=== PATIENT | male | born 1985 | race American Indian/Alaskan Native ===

== ENCOUNTER 2016-11-05 20:12 | Emergency (ER) | payer MEDICARE ==
[2016-11-05 21:28] LABS: Anion Gap 17 mmol/L; Basophils % (Auto) 0.3 % (0.0-1.8); Blood Urea Nitrogen 15 mg/dL (9-20); Calcium 9.6 mg/dL (8.4-10.2); Carbon Dioxide 25 mmol/L (22-30); Chloride 99.5 mmol/L (98-107); Eosinophils % (Auto) 0.5 % (0.0-4.3); Glucose 92 mg/dL (75-100); Hematocrit 43.2 % (35.5-45.6); Mean Corpuscular HGB Conc 35 % (32-34); Mean Corpuscular Hemoglobin 31 pg (28-32); Mean Corpuscular Volume 88 fl (84-94); Platelet Count 279 K/mm3 (140-440); Potassium 3.8 mmol/L (3.6-5.0); Red Blood Count 4.91 M/mm3 (3.65-5.03); Red Cell Distribution Width 13.9 % (13.2-15.2); Sodium 138 mmol/L (137-145); White Blood Count 8.7 K/mm3 (4.5-11.0)
--- NOTE | 2016-11-05 21:43 | Emergency Department Report ---
ED Psych HPI - General Chief Complaint: Psych Stated Complaint: MENTAL EVALUATION/SUCIDIAL IDEATIONS Time Seen by Provider: 11/05/16 21:31 Source: patient Mode of arrival: Ambulatory Limitations: Altered Mental Status - History of Present Illness Initial Comments: 31-year-old male with a past medical history PTSD, bipolar, and schizophrenia presents to the hospital complaints of suicidal ideation 3 days. Patient threatening to shoot himself. He also feels like killing 40 people. He is hearing voices telling him to kill and destroyed. Patient is taking his Seroquel and Benadryl. Triage reports patient is hyperverbal but not currently hyperverbal during my evaluation. Patient complains of generalized body pain. History of suicide attempt by cutting his neck in 2000. Patient last visit here was November 2015 when he was transferred to psychiatric hospital for suicidal ideation. - Related Data Home Medications Medication Instructions Recorded Confirmed Last Taken No Known Home Medications [No 12/10/15 12/10/15 Unknown Reported Home Medications] Allergies Allergy/AdvReac Type Severity Reaction Status Date / Time haloperidol [From Haldol] Allergy Unknown Verified 12/10/15 07:58 haloperidol lactate Allergy Unknown Verified 12/10/15 07:58 [From Haldol] risperidone [From Risperdal] Allergy Anaphylaxis Verified 12/10/15 03:47 ziprasidone HCl [From Geodon] Allergy Unknown Verified 12/10/15 15:19 ziprasidone mesylate Allergy Unknown Verified 12/10/15 15:19 [From Geodon] ED Review of Systems ROS: Stated complaint: MENTAL EVALUATION/SUCIDIAL IDEATIONS Other details as noted in HPI Comment: All other systems reviewed and negative Other: Constitutional: No fevers chills Eyes: No eye pain visual changes ENT: No ear pain or throat pain Neck: Denies pain Respiratory: Denies cough wheezing shortness of breath Cardiovascular: Denies chest pain, palpitations, syncope GI: Denies abdominal pain, nausea, vomiting, diarrhea : Denies dysuria Musculoskeletal: Generalized body pain Skin: Denies rash, lesions, erythema Neurologic: Denies headache, numbness, weakness Psychiatric: As per HPI ED Past Medical Hx - Past Medical History Previous Medical History?: Yes Hx Psychiatric Treatment: Yes (Paranoid Schizophrenia, Bipolar, PTSD) - Surgical History Past Surgical History?: No - Social History Smoking Status: Never Smoker Substance Use Type: Alcohol, Marijuana - Medications Home Medications: Home Medications Medication Instructions Recorded Confirmed Last Taken Type No Known Home Medications [No 12/10/15 12/10/15 Unknown History Reported Home Medications] ED Physical Exam - General Limitations: No Limitations - Other Other exam information: General: No limitations, patient is alert in no acute distress Head exam: Atraumatic, normocephalic Eyes exam: Normal appearance, pupils equal reactive to light ENT: Moist mucous membrane, normal oropharynx Neck exam: Normal inspection, full range of motion, no meningismus nontender Respiratory exam: Clear to auscultation bilateral, no wheezes, rales, crackles Cardiovascular: Normal rate and rhythm, normal heart sounds Abdomen: Soft, nondistended, and nontender, with normal bowel sounds, no rebound, or guarding Extremity: Full range of motion normal inspection no deformity Back: Normal Inspection, full range of motion, no tenderness Neurologic: Alert, oriented x3, cranial nerves intact, no motor or sensory deficit Psychiatric: Flat affect, angry Skin: Warm, dry, intact ED Course Vital Signs 11/05/16 20:21 Temperature 98.7 F Pulse Rate 100 H Respiratory 18 Rate Blood Pressure 138/88 O2 Sat by Pulse 99 Oximetry - Consultations Consultation #1: 11/05/16 21:42 Mental health evaluation requested ED Medical Decision Making - Lab Data Result diagrams: 11/05/16 21:00 11/05/16 21:00 Lab Results 11/05/16 11/05/16 11/05/16 Range/Units 21:00 21:00 21:00 WBC 8.7 (4.5-11.0) K/mm3 RBC 4.91 (3.65-5.03) M/mm3 Hgb 15.0 (11.8-15.2) gm/dl Hct 43.2 (35.5-45.6) % MCV 88 (84-94) fl MCH 31 (28-32) pg MCHC 35 H (32-34) % RDW 13.9 (13.2-15.2) % Plt Count 279 (140-440) K/mm3 Lymph % (Auto) 35.7 H (13.4-35.0) % [place] % (Auto) 6.8 (0.0-7.3) % Eos % (Auto) 0.5 (0.0-4.3) % Baso % (Auto) 0.3 (0.0-1.8) % Lymph # 3.1 (1.2-5.4) K/mm3 [place] # 0.6 (0.0-0.8) K/mm3 Eos # 0.0 (0.0-0.4) K/mm3 Baso # 0.0 (0.0-0.1) K/mm3 Seg Neutrophils % 56.7 (40.0-70.0) % Seg Neutrophils # 4.9 (1.8-7.7) K/mm3 Sodium 138 (137-145) mmol/L Potassium 3.8 (3.6-5.0) mmol/L Chloride 99.5 (98-107) mmol/L Carbon Dioxide 25 (22-30) mmol/L Anion Gap 17 mmol/L BUN 15 (9-20) mg/dL Creatinine 1.0 (0.8-1.5) mg/dL Estimated GFR > 60 ml/min BUN/Creatinine Ratio 15.00 % Glucose 92 (75-100) mg/dL Calcium 9.6 (8.4-10.2) mg/dL Urine Color (Yellow) Urine Turbidity (Clear) Urine pH (5.0-7.0) Ur Specific [place] (1.003-1.030) Urine Protein (Negative) mg/dL Urine Glucose (UA) (Negative) mg/dL Urine Ketones (Negative) mg/dL Urine Blood (Negative) Urine Nitrite (Negative) Urine Bilirubin (Negative) Urine Urobilinogen (<2.0) mg/dL Ur Leukocyte Esterase (Negative) Urine WBC (Auto) (0.0-6.0) /HPF Urine RBC (Auto) (0.0-6.0) /HPF Urine Mucus /HPF Urine Opiates Screen Urine Methadone Screen Ur Barbiturates Screen Ur Phencyclidine Scrn Ur Amphetamines Screen U Benzodiazepines Scrn Urine Cocaine Screen U Marijuana (THC) Screen Drugs of Abuse Note Plasma/Serum Alcohol < 0.01 (0-0.07) gm% 11/05/16 11/05/16 Range/Units Unknown Unknown WBC (4.5-11.0) K/mm3 RBC (3.65-5.03) M/mm3 Hgb (11.8-15.2) gm/dl Hct (35.5-45.6) % MCV (84-94) fl MCH (28-32) pg MCHC (32-34) % RDW (13.2-15.2) % Plt Count (140-440) K/mm3 Lymph % (Auto) (13.4-35.0) % [place] % (Auto) (0.0-7.3) % Eos % (Auto) (0.0-4.3) % Baso % (Auto) (0.0-1.8) % Lymph # (1.2-5.4) K/mm3 [place] # (0.0-0.8) K/mm3 Eos # (0.0-0.4) K/mm3 Baso # (0.0-0.1) K/mm3 Seg Neutrophils % (40.0-70.0) % Seg Neutrophils # (1.8-7.7) K/mm3 Sodium (137-145) mmol/L Potassium (3.6-5.0) mmol/L Chloride (98-107) mmol/L Carbon Dioxide (22-30) mmol/L Anion Gap mmol/L BUN (9-20) mg/dL Creatinine (0.8-1.5) mg/dL Estimated GFR ml/min BUN/Creatinine Ratio % Glucose (75-100) mg/dL Calcium (8.4-10.2) mg/dL Urine Color Yellow (Yellow) Urine Turbidity Clear (Clear) Urine pH 5.0 (5.0-7.0) Ur Specific [place] 1.031 H (1.003-1.030) Urine Protein <15 mg/dl (Negative) mg/dL Urine Glucose (UA) Neg (Negative) mg/dL Urine Ketones Neg (Negative) mg/dL Urine Blood Neg (Negative) Urine Nitrite Neg (Negative) Urine Bilirubin Neg (Negative) Urine Urobilinogen 2.0 (<2.0) mg/dL Ur Leukocyte Esterase Neg (Negative) Urine WBC (Auto) < 1.0 (0.0-6.0) /HPF Urine RBC (Auto) 2.0 (0.0-6.0) /HPF Urine Mucus 3+ /HPF Urine Opiates Screen Presumptive negative Urine Methadone Screen Presumptive negative Ur Barbiturates Screen Presumptive negative Ur Phencyclidine Scrn Presumptive negative Ur Amphetamines Screen Presumptive negative U Benzodiazepines Scrn Presumptive negative Urine Cocaine Screen Presumptive negative U Marijuana (THC) Screen Presumptive positive Drugs of Abuse Note Disclamer Plasma/Serum Alcohol (0-0.07) gm% - Medical Decision Making 1013 and transfer form signed. - Differential Diagnosis psychosis, depression, PTSD, schizophrenia, SI, HI Critical care attestation.: If time is entered above; I have spent that time in minutes in the direct care of this critically ill patient, excluding procedure time. ED Disposition Clinical Impression: Suicidal ideation, Homicidal ideation, PTSD (post-traumatic stress disorder), Schizophrenia, Medical clearance for psychiatric admission, Marijuana use Disposition: [id number]/[id number] PSY HOSP/PSY UNIT Is pt being admited?: No Condition: Stable Time of Disposition: 21:44 (awaiting acceptance)
[2016-11-05 21:50] LABS: Urine Drugs of Abuse Note Disclamer
[2016-11-05 22:11] LABS: Bilirubin,Urine NEG (Negative); Blood,Urine NEG (Negative); Ketones,Urine NEG (Negative); Leukocyte Esterase,Urine NEG (Negative); Mucus,Urine 3+ /HPF; Nitrite,Urine NEG (Negative); Protein,Urine <15 mg/dL mg/dL (Negative); WBC,Urine < 1.0 /HPF (0.0-6.0)
[2016-11-06 06:47] VITALS: BP 135/78
== END 2016-11-06 00:20 ==
LOC: EEVIPCON 20:12 → ED 20:12
DX: R45.851 Suicidal ideations (principal); R45.850 Homicidal ideations; F43.10 Post-traumatic stress disorder, unspecified; F20.9 Schizophrenia, unspecified; F12.10 Cannabis abuse, uncomplicated; Z88.8 Allergy status to other drugs, medicaments and biological substances
CPT/HCPCS: 36415; 80048; 80307; 81001; 85025; 99285; G0480; 80320